=== PATIENT | male | born 1980 | race Caucasian/White ===

== ENCOUNTER 2018-08-25 09:02 | Outpatient (CLI) | payer OTHER ==
[~2018-08-25] VITALS: Ht 190.5 cm; Wt 72.7 kg
[2018-08-25 09:16] LABS: BASOPHILS 0.5 % (0-2); EOSINOPHILS 1.6 % (0-7); HEMATOCRIT 48.5 % (42.0-54.0); MCH 31.7 pg (26.0-34.0); MCHC 35.1 g/dL (31.0-37.0); MCV 90.3 fL (80.0-100.0); MEAN PLATELET VOLUME 10.9 fL (7.4-10.4); MONOCYTES 0.9 % (2-11); PLATELET COUNT 171 10x3/uL (130-400); RBC 5.37 10x6/uL (4.20-6.10); RDW 12.9 % (11.5-14.5); WBC 4.3 10x3/uL (4.8-10.8)
[2018-08-25 09:26] LABS: ANION GAP 17.1 mmol/L (8-16); CALCIUM 9.8 mg/dL (8.5-10.1); CARBON DIOXIDE 29.4 mmol/L (21.0-32.0); CREATININE - SERUM 1.5 mg/dL (0.6-1.3); POTASSIUM - SERUM 4.5 mmol/L (3.5-5.1)
[2018-08-25 09:31] LABS: APTT 25.5 SECONDS (22.8-39.4); INR 1.17 (0.85-1.17); PROTIME 14.4 SECONDS (11.6-15.0)
[2018-08-25] MEDS ORDERED: OMEPRAZOLE40 MG (09:51)
[2018-08-25] MEDS ORDERED: HYDROCODON-ACE1 EA10 PO (09:52)
[2018-08-25] MEDS ORDERED: ZANTAC (09:52)
[2018-08-25] MEDS ORDERED: ZOFRAN4 MG PO (09:53)
[2018-08-25] MEDS ORDERED: PHENERGAN25 M1 (09:53)
[2018-08-25 10:12] VITALS: Ht 190.5 cm; Wt 72.7 kg
--- NOTE | 2018-08-25 13:08 | NUR ---
1259 SEE POST PROCEDURE CHECKLIST FOR VITAL SIGN TRENDS
--- NOTE | 2018-08-25 14:29 | NUR ---
1428 PORT CXR DONE
--- NOTE | 2018-08-25 15:24 | NUR ---
1520 DR. ANGELES ROUNDS ON PT. OKAYS RELEASE AT 1630.
== END 2018-08-25 16:40 | disposition home or self-care (01) ==
LOC: D.SP 09:02 → D.CT 10:00 → D.SP 10:00
PROVIDERS: Radiology Diagnostic Radiology; ATTEND Internal Medicine Medical Oncology
DX: C78.7 Secondary malignant neoplasm of liver and intrahepatic bile duct (principal); C15.9 Malignant neoplasm of esophagus, unspecified; Z01.812 Encounter for preprocedural laboratory examination